=== PATIENT | female | born 1995 | race African-American/Black ===

== ENCOUNTER 2019-02-22 19:33 | Emergency (ER) | payer OTHER ==
[~2019-02-22] VITALS: Ht 175.3 cm; Wt 97.3 kg
[2019-02-22] MEDS ORDERED: IBUP200C25 PO (19:45)
[2019-02-22] MEDS ORDERED: CYCLOBENZAPRINE 10 MG TAB PO ONE (20:15)
[2019-02-22] MEDS ORDERED: KETOROLAC 60 MG/2 ML VIAL (J1885) IM ONE (20:15)
[2019-02-22] MEDS ORDERED: CYCL5TAB PO (20:53)
[2019-02-22] MEDS ORDERED: KETO10TAB PO (20:53)
[2019-02-22 20:59] VITALS: BP 124/81
--- NOTE | 2019-02-22 23:52 | REP ---
Clinical: Pain. Technique: Three views of the sacrum and coccyx. Findings: No acute fracture or dislocation/subluxation. Sacroiliac joints are symmetric and normal. Osseous structures are intact and unremarkable in appearance. Surrounding soft tissues are normal. Impression: Normal sacrum and coccygeal radiographs. Electronically Signed by Ulises Abad MD 02/22/2019 11:43 P
== END 2019-02-22 21:01 | disposition home or self-care (01) ==
LOC: M ED 19:33
DX: S39.012A Strain of muscle, fascia and tendon of lower back, initial encounter (principal); X58.XXXA Exposure to other specified factors, initial encounter; Y92.89 Other specified places as the place of occurrence of the external cause; M72.2 Plantar fascial fibromatosis; F17.210 Nicotine dependence, cigarettes, uncomplicated; Z79.899 Other long term (current) drug therapy
CPT/HCPCS: 72220; 96372; 99284; J1885